=== PATIENT | female | born 1970 | race Two or more races ===

== ENCOUNTER 2021-12-19 06:13 | Day surgery (SDC) | payer OTHER ==
[~2021-12-19 06:13] MED LIST: COZAAR50 MG PO; OMEGA 3 1,0001 EACH PO; SYNTHROID150 MCG PO; VITAMIN D PO
== END 2021-12-19 16:10 | disposition home or self-care (01) ==
LOC: CIR.AMB 06:13
PROVIDERS: ATTEND Obstetrics & Gynecology
DX: N84.0 Polyp of corpus uteri (principal); D25.9 Leiomyoma of uterus, unspecified; I10 Essential (primary) hypertension; E78.5 Hyperlipidemia, unspecified; Z86.16 Personal history of COVID-19; E03.9 Hypothyroidism, unspecified; R73.03 Prediabetes; G43.909 Migraine, unspecified, not intractable, without status migrainosus; E66.01 Morbid (severe) obesity due to excess calories